=== PATIENT | female | born 1970 | race Caucasian/White ===

== ENCOUNTER 2018-09-29 12:16 | Day surgery (SDC) | payer BC ==
--- NOTE | 2018-09-24 12:51 | HP ---
Amended report to enter cosigning physician. PREOPERATIVE HISTORY AND PHYSICAL: DATE OF ADMISSION: 09/29/18 DATE OF OFFICE VISIT/ENCOUNTER: 09/23/18 ATTENDING SURGEON: Serena Aquino MD* (dictated by SHYAM Olivas). PROCEDURE: Open reduction internal fixation, right wrist. 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 She was seen in the office by Dr. Aquino few days later and a closed reduction was performed. The patient was placed in a cast. Unfortunately, upon her followup visit a week later, updated x- ray showed that the fracture fragments had displaced. There was an increase in the dorsal angulation and a slight collapse of the radius. It was suggested that the patient undergo surgical intervention for best outcome of this injury and she consented to proceed. PAST MEDICAL HISTORY: 1. GERD. 2. Anxiety. 3. History of migraine headaches. PAST SURGICAL HISTORY: Vein ligation, bilateral legs. CURRENT MEDICATIONS: 1. Cyclobenzaprine HCl 5 mg daily p.r.n. insomnia. 2. Esomeprazole magnesium 20 mg daily. 3. Lexapro 10 mg 1.5 daily. ALLERGIES: No known drug allergies. FAMILY MEDICAL HISTORY: Diabetes, prostate cancer, colon cancer, breast cancer. 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 She denies tobacco use, recreational drug use, and does not drink alcohol. REVIEW OF SYSTEMS: Negative for general, cephalic, cardiovascular, respiratory , GI, , other musculoskeletal, integumentary, endocrine, neurologic, and hematologic symptoms. Infectious Disease: Negative for MRSA, hepatitis C, HIV. PHYSICAL EXAMINATION GENERAL: Well-developed, well-nourished 48-year-old female, in no acute distress. VITAL SIGNS: Height 5 feet 3 and a quarter inch, weight 150 pounds. Pulse rate 90, blood pressure 114/84. HEENT: Normocephalic, atraumatic. Pupils are equal, round, and reactive to light and accommodation. Extraocular movements are intact. NECK: Supple. No palpable lymph nodes. Throat is clear. PULMONARY: Lungs are clear to auscultation bilaterally. No wheezes, rales, or rhonchi. CARDIOVASCULAR: Regular rate and rhythm. S1, S2. No murmurs, rubs, or gallops. No edema. ABDOMEN: Positive bowel sounds. Soft, nontender. NEUROLOGIC: Alert and oriented x3. Cranial nerves II through XII are intact. Sensation is intact to light touch. MUSCULOSKELETAL: On exam of the right arm, it is enclosed in a short-arm cast. There is minimal swelling in the patient's fingers. She has good motion in the fingers. Neurovascular function is intact. DIAGNOSTIC STUDIES: X-rays of the right wrist show the distal transverse radius fracture with dorsal angulation that appears to be increased when compared to previous films. IMPRESSION: Right distal radius fracture with increased dorsal angulation and slight collapse of the radius when compared to post-reduction films. PLAN: The patient is scheduled to undergo an open reduction internal fixation of the right wrist with Dr. Aquino on 09/29/18. She will return to the office 10 days postop for followup and suture removal. A prescription for [place] was e- scribed to the patient's pharmacy for postoperative pain management. We will remove cast on the day of surgery. SHYAM OLIVAS [id number] #: [id number] EFRAÍN
[~2018-09-29 12:16] MED LIST: Buffered Lidocaine 1% SYRIN* 1 ML/SYRINGE INTRADERM ONE; Dexamethasone IV* 4 MG/ML 1 ML (4 MG) IV SLOW PU ONE; Famotidine IV* 10 MG/ML 2 ML (20 mg) IV ONE; Lactated Ringers 1000 ML Bag* 1,000 ML IV SCH
[2018-09-29] MEDS ORDERED: ceFAZolin 2 GM PREMIX in ORs 2 GM/50 ML BAG ONE (12:32)
[2018-09-29] MEDS ORDERED: Famotidine IV* 10 MG/ML 2 ML (20 mg) ONE (12:36)
[2018-09-29] MEDS ORDERED: Dexamethasone IV* 4 MG/ML 1 ML (4 MG) ONE (12:36)
[2018-09-29] MEDS ORDERED: fentaNYL* 50 MCG/ML 2 ML VIAL (100 MCG VIAL) ONE (13:48)
[2018-09-29] MEDS ORDERED: Midazolam* 1 MG/ML 2 ML VIAL (2 MG) ONE (13:48)
[2018-09-29] MEDS ORDERED: Scopolamine 1.5 mg* PATCH ONE (14:05)
[2018-09-29] MEDS ORDERED: ROPIVACAINE 5 MG/ML 30 ML BTL (0.5%) ONE ×2 (14:08→14:27)
[2018-09-29] MEDS ORDERED: Propofol* 10 MG/ML 20 ML BTL ONE (14:10)
[2018-09-29] MEDS ORDERED: Lidocaine 2% PF * 5 ML VIAL ONE (14:39)
[2018-09-29] MEDS ORDERED: Ketorolac INJ* 30 MG/ML 1 ML VIAL ONE (14:53)
[2018-09-29] MEDS ORDERED: Ondansetron INJ* 2 MG/ML VIAL ONE (15:14)
[2018-09-29] MEDS ORDERED: oxyCODONE/Acetamin 5/325 MG* TAB PO PRN (16:00)
[2018-09-29] MEDS ORDERED: fentaNYL* 50 MCG/ML 2 ML VIAL (100 MCG VIAL) IV PRN (16:00)
[2018-09-29] MEDS ORDERED: HYDROcodone/ACETAMIN 5-325 MG* 1 TAB PO PRN (16:00)
[2018-09-29] MEDS ORDERED: Naloxone* 0.4 MG/ML 1 ML VIAL IV PRN (16:00)
[2018-09-29] MEDS ORDERED: PROCHLORPERAZINE INJ 5 MG/ML 2 ML VIAL IV PRN (16:00)
[2018-09-29 16:32] VITALS: BP 137/79
--- NOTE | 2018-09-29 16:44 | OP ---
CC: Dr. Aquino OPERATIVE NOTE: DATE OF OPERATION: 09/29/18 DATE OF : 68 SURGEON: Serena Aquino MD ANIMAL ECOLOGIST: SHYAM Olivas ANESTHESIA: General and block. PRE-OP DIAGNOSIS: Right distal radius fracture. POST-OP DIAGNOSIS: Right distal radius fracture. PROCEDURE PERFORMED: Open reduction and internal fixation of the right distal radius. ESTIMATED BLOOD LOSS: Zero. TOURNIQUET TIME: Approximately 30 minutes. INDICATIONS FOR PROCEDURE: Fariba is a 48-year-old female who has suffered a fracture of her distal radius. She had a closed reduction and lost reduction, she presents for ORIF. DESCRIPTION OF PROCEDURE: The patient was brought to the operating room and placed in supine positio n on the operating table with a tourniquet around her right upper arm. Skin of her right upper extre mity was prepped and draped in the usual sterile fashion. This was done after the patient was given a general anesthetic and a block. Upper extremity was exsanguinated and the tourniquet elevated to 2 50 mmHg. A longitudinal incision was made over the FCR tendon. We dissected through the subcutaneous tissue down to the FCR tendon sheath. The superficial and deep portion of the tendon sheath were in cised and the FCR and the FPL muscle and tendon were retracted ulnarly. The pronator quadratus was t hen subperiosteally dissected off of the distal radius. The fracture fragments were freed and then b rought into reduction. A plate was secured from the 2.4 variable angle distal radius set with 3 prox imal and 4 distal screws. The position of the hardware and fracture fragments were checked on the C- arm in the AP and lateral views and found to be satisfactory. The wound was irrigated. The pronator quadratus was repaired over the plate with 2-0 Vicryl suture. The FCR tendon sheath was repaired wi th 2-0 Vicryl and then the skin edges reapproximated with 4-0 nylon suture. The wound was dressed wi th Xeroform, 4x4, Webril, and a volar splint. The patient tolerated the procedure well and was broug ht to the recovery room in good condition. [id number]/[facility] #: [id number]
== END 2018-09-29 16:25 | disposition home or self-care (01) ==
LOC: OREAST 12:16
PROVIDERS: ATTEND Orthopaedic Surgery
DX: S52.571A Other intraarticular fracture of lower end of right radius, initial encounter for closed fracture (principal); W01.0XXA Fall on same level from slipping, tripping and stumbling without subsequent striking against object, initial encounter; Y92.008 Other place in unspecified non-institutional (private) residence as the place of occurrence of the external cause; K21.9 Gastro-esophageal reflux disease without esophagitis; F41.9 Anxiety disorder, unspecified; G89.18 Other acute postprocedural pain
CPT/HCPCS: 76000; A9270-GY; C1713; C1776; J0690; J1100; J1885; J2250; J2405; J2704; J2795; J3010

== ENCOUNTER 2019-06-28 10:54 | Emergency (ER) | payer BC ==
[2019-06-28 11:24] VITALS: BP 120/81
[2019-06-28] MEDS ORDERED: Acetaminophen TAB* 325 MG PO ONE (13:43)
--- NOTE | 2019-06-28 13:58 | UC ---
FLU HPI - HPI Summary HPI Summary: 49-year-old female comes in with a chief complaint of fevers chills headaches myalgia. Sudden onset last evening. Her has had similar symptoms about 2 days earlier than her and he is starting to improve. Does have some postnasal drip the rhinorrhea and a mild sore throat associated with it but overall patient does not feel like her sore throat is severe. She has a cough last night been no cough today does not feel short of breath. Did have a fever last night. Has been taking acetaminophen which does help the symptoms. - History of Current Complaint Chief Complaint: UCGeneralIllness Stated Complaint: REVER, RESP Time Seen by Provider: 06/28/19 13:29 Pain Intensity: 0 - Allergy/Home Medications Allergies/Adverse Reactions: Allergies Allergy/AdvReac Type Severity Reaction Status Date / Time No Known Allergies Allergy Verified 09/29/18 12:42 Home Medications: Home Medications Escitalopram Oxalate [Lexapro 10 mg] 15 mg PO QPM 12/03/17 [History Confirmed ] Esomeprazole Magnesium [Nexium 24Hr] 40 mg PO QAM 12/03/17 [History Confirmed ] Acetaminophen [Acetaminophen Extra Strength] 1,000 mg PO ONCE PRN 09/28/18 [ History Confirmed 09/28/18] Aspirin/Acetaminophen/Caffeine [Excedrin Migraine Caplet] 1 each PO ONCE PRN [History Confirmed 09/28/18] Cyclobenzaprine TAB* [Flexeril 10 MG TAB*] 5 mg PO BEDTIME PRN 09/28/18 [ History Confirmed 09/28/18] Ibuprofen TAB* [Advil TAB*] 400 - 600 mg PO ONCE PRN 09/28/18 [History Confirmed 09/28/18] Mineral Oil, Light/Mineral Oil [Soothe Xp/Xtra Protection] 1 drop BOTH EYES BID 09/28/18 [History Confirmed 09/28/18] Multivitamin [Multiple Vitamins] 1 tab PO QPM 09/28/18 [History Confirmed ] Oseltamivir CAP* [Tamiflu CAP*] 75 mg PO BID #10 cap 06/28/19 [Rx] PMH/Surg Hx/FS Hx/Imm Hx Previously Healthy: Yes GI/ History: Gastroesophageal Reflux - Surgical History Surgical History: Yes Surgery Procedure, Year, and Place: CYST REMOVED RIGHT BREAST,BENIGN. VEIN CLOSURE TO BOTH LEGS-[facility]- OFFICE. RIGHT WRIST - Family History Known Family History: Positive: Non-Contributory - Social History Alcohol Use: None Substance Use Type: None Smoking Status (MU): Never Smoked Tobacco Have You Smoked in the Last Year: No Review of Systems All Other Systems Reviewed And Are Negative: Yes Constitutional: Positive: Fever, Other - SEE HPI Skin: Positive: Negative Eyes: Positive: Negative ENT: Positive: Sore Throat, Nasal Discharge Respiratory: Positive: Cough Cardiovascular: Positive: Negative Gastrointestinal: Positive: Negative Motor: Positive: Negative Neurovascular: Positive: Negative Musculoskeletal: Positive: Myalgia Neurological/Mental Status: Positive: Negative Psychological: Positive: Negative Is Patient Immunocompromised?: No Physical Exam Triage Information Reviewed: Yes Appearance: No Pain Distress, Well-Nourished, Ill-Appearing - MILD Vital Signs: Initial Vital Signs Temp 98.6 F 06/28/19 11:21 Pulse 83 06/28/19 11:21 Resp 17 06/28/19 11:21 BP 120/81 06/28/19 11:21 Pulse Ox 99 06/28/19 11:21 Vital Signs Reviewed: Yes Eye Exam: Normal Eyes: Positive: Conjunctiva Clear ENT: Positive: Pharynx normal, Nasal congestion, TMs normal Neck: Positive: Supple Respiratory: Positive: Lungs clear, Normal breath sounds, No respiratory distress Cardiovascular: Positive: RRR Musculoskeletal: Positive: Strength Intact, ROM Intact Neurological: Positive: Alert, Muscle Tone Normal Psychological: Positive: Age Appropriate Behavior Skin Exam: Normal Flu Course/Dx - Differential Dx/Diagnosis Provider Diagnosis: Influenza Discharge ED - Sign-Out/Discharge Documenting (check all that apply): Patient Departure All imaging exams completed and their final reports reviewed: No Studies - Discharge Plan Condition: Stable Disposition: HOME Prescriptions: Oseltamivir CAP* [Tamiflu CAP*] 75 mg PO BID #10 cap Patient Education Materials: Influenza (ED) Referrals: Calli Hubbard NP [Primary Care Provider] - Additional Instructions: FOLLOW UP WITH YOUR DOCTOR IF NOT COMPLETELY IMPROVED. GO TO THE EMERGENCY DEPARTMENT IF NOT IMPROVED OR WORSE OR ANY QUESTIONS OR CONCERNS. - Billing Disposition and Condition Condition: STABLE Disposition: Home
[2019-06-28 14:11] LABS: Influenza A Molecular POSITIVE (Negative)
== END 2019-06-28 14:30 | disposition home or self-care (01) ==
LOC: UCEAST 10:54
DX: J11.1 Influenza due to unidentified influenza virus with other respiratory manifestations (principal); K21.9 Gastro-esophageal reflux disease without esophagitis; Z79.82 Long term (current) use of aspirin; Z79.899 Other long term (current) drug therapy
CPT/HCPCS: 99212; A9270-GY; G0463